=== PATIENT | male | born 1960 | race Two or more races ===

== ENCOUNTER 2019-04-18 19:21 | Emergency (ER) | payer SELFPAY ==
[~2019-04-18] VITALS: Ht 152.4 cm; Wt 77.0 kg
[2019-04-18 19:38] VITALS: BP 135/75
== END 2019-04-19 | disposition left against medical advice (07) ==
LOC: ER 19:21
DX: Z53.21 Procedure and treatment not carried out due to patient leaving prior to being seen by health care provider (principal)